=== PATIENT | male | born 1985 | race African-American/Black ===

== ENCOUNTER 2016-08-15 20:29 | Emergency (ER) | payer OTHER ==
[~2016-08-15] VITALS: Ht 177.8 cm; Wt 100.8 kg
[~2016-08-15 20:29] MED LIST: IBUPROFEN600 MG; PERCOCET 5/31 TABLET PO; TAMSULOSIN HCL0.4 MG; VICODIN,LORT1 TABLET PO
[2016-08-15 21:43] LABS: HEMATOCRIT 45.4 % (38.0-50.0); MCHC 32.6 G/DL (30.0-36.0); MCV 85.8 FL (86-99); RBC DIS.WIDTH-CV 12.4 % (11.8-14.6); RBC DIS.WIDTH-SD 38.8 % (39-53); RED BLOOD COUNT 5.29 M/uL (4.00-5.50); WHITE BLOOD COUNT 13.3 K/uL (4.1-10.2)
[2016-08-15 21:55] LABS: CHLORIDE 105 mEq/L (99-109); POTASSIUM 3.9 mEq/L (3.7-5.4); SODIUM 142 mEq/L (136-147)
[2016-08-15 21:57] LABS: GLUCOSE 128 mg/dL (70-99)
[2016-08-15 21:59] LABS: ANION GAP 12 MEQ/L (2-14); TOTAL BILIRUBIN 0.5 mg/dL (0.0-1.0)
[2016-08-15 22:01] LABS: ALKALINE PHOSPHATASE 70 IU/L (3-129); GFR ESTIMATE (CALCULATED) > 59 mL/min/
[2016-08-15 22:02] LABS: UREA NITROGEN (BUN) 14 mg/dL (9-23)
[2016-08-15 22:32] LABS: MEAN PLAT.VOLUME 11.6 uM^3 (9.0-12.4); PLAT.SUFFICIENCY ADEQUATE; PLATELET COUNT 261 K/uL (156-360)
[2016-08-15] MEDS ORDERED: TORADOL10 MG PO (23:31)
[2016-08-15] MEDS ORDERED: PERCOCET 5/31 TABLET PO (23:31)
[2016-08-15] MEDS ORDERED: ZOFRAN4 MG PO (23:31)
[2016-08-15 23:51] LABS: ADD MIUA? YES; BILIRUBIN NEGATIVE; BLOOD LARGE; COLOR YELLOW ((YELLOW)); GLUCOSE (STRIP) NEGATIVE; KETONES 5; LEUKOCYTES NEGATIVE; NITRITE NEGATIVE; PROTEIN (STRIP) 100; SPECIFIC GRAVITY 1.031 (1.000-1.030); UROBILINOGEN 0.2 MG/DL (0.2-1.0)
[2016-08-16 00:02] LABS: BACTERIA NONE SEEN /HPF; EPITHELIAL CELLS NONE SEEN /HPF; MUCUS 4+ /LPF; RED BLOOD CELLS TNTC /HPF (0-5); UCUL ADDED? NO; WHITE BLOOD CELLS 0-5 /HPF (0-5)
[2016-08-16 00:09] VITALS: BP 142/81
== END 2016-08-16 00:09 | disposition home or self-care (01) ==
LOC: EXP 20:29 → EME 20:29 → EXP 08-16 00:09
PROVIDERS: Physician Assistant
DX: N13.2 Hydronephrosis with renal and ureteral calculous obstruction (principal); R11.2 Nausea with vomiting, unspecified; Z87.442 Personal history of urinary calculi; F17.200 Nicotine dependence, unspecified, uncomplicated
CPT/HCPCS: 74176; 80053; 81003; 85027; 99281; 99284; J1885